=== PATIENT | male | born 1955 | race African-American/Black ===

== ENCOUNTER 2021-05-12 08:10 | Emergency (ER) | payer MEDICARE, MEDICAID ==
[~2021-05-12] VITALS: Ht 193 cm; Wt 68.0 kg
[~2021-05-12 08:10] MED LIST: AMLO10TA80 MT; SULF1TAB48 MT
[2021-05-12] MEDS ORDERED: AMOX1TAB16 MT (10:47)
[2021-05-12] MEDS ORDERED: IBUP-2029 MT (11:04)
[2021-05-12 11:17] VITALS: BP 158/78
== END 2021-05-12 11:31 | disposition home or self-care (01) ==
LOC: ER 08:10
DX: L02.214 Cutaneous abscess of groin (principal); I10 Essential (primary) hypertension
CPT/HCPCS: 99281

== ENCOUNTER 2022-02-25 12:49 | Inpatient (IN) | payer MEDICARE, MEDICAID ==
[~2022-02-25] VITALS: Ht 182.9 cm; Wt 64.9 kg
[~2022-02-25 12:49] MED LIST changes: +AMOX1TAB16 MT; +IBUP-2029 MT
[2022-02-25] MEDS ORDERED: ONDANSETRON HCL 4MG/2ML INJ IV STA (16:53)
[2022-02-25] MEDS ORDERED: MORPHINE SULFATE 4 MG/ML CPJ (NOT FOR IM USE) IV STA (16:53)
[2022-02-25] MEDS ORDERED: SODIUM CHLORIDE 0.9% 1,000 ML IV ONE (17:00)
[2022-02-25 18:11] LABS: BASOPHILS % 0.4 % (0.0-2.0); EOSINOPHILS % 1.8 % (0.0-5.0); HEMATOCRIT. 31.5 % (42.0-52.0); HEMOGLOBIN. 10.5 g/dL (14.0-18.0); LYMPHOCYTES % 26.4 % (20.0-50.0); MEAN CORPUSCULAR HEMOGLOBIN 28.7 pg (28.0-32.0); MEAN CORPUSCULAR VOLUME 86.5 fL (80.0-94.0); MEAN PLATELET VOLUME 8.1 fl (7.4-10.4); MONOCYTES % 9.7 % (2.0-8.0); NEUTROPHILS % 61.7 % (40.0-76.0); PLATELET 172 x1000/uL (130-400); RED BLOOD CELL COUNT 3.64 mill/uL (4.7-6.1); RED CELL DISTRIBUTION WIDTH 14.2 % (11.6-14.6)
[2022-02-25 18:20] LABS: PROTHROMBIN TIME 10.9 sec (9.6-11.0)
[2022-02-25 18:28] LABS: CHLORIDE 106 mEq/L (98-107)
[2022-02-25 18:31] LABS: CLARITY URINE CLEAR (CLEAR); COLOR URINE YELLOW (YELLOW); KETONES URINE NEGATIVE (NEGATIVE); LEUKOCYTE ESTERASE URINE 2+ (NEGATIVE); NITRITE URINE NEGATIVE (NEGATIVE); OCCULT BLOOD URINE TRACE (NEGATIVE); PROTEIN URINE NEGATIVE (NEGATIVE); UROBILINOGEN URINE 0.2 E.U./dL (0.2-1.0)
[2022-02-25] MEDS ORDERED: HYDRALAZINE 20MG/ML VIAL IV ONE (19:15)
[2022-02-26] MEDS ORDERED: DOXA4TAB3 MT (09:12)
[2022-02-26] MEDS ORDERED: SULF-13 MT (09:12)
[2022-02-26] MEDS ORDERED: POTA-205 MT (09:12)
[2022-02-26] MEDS ORDERED: AMLO5TAB88 MT (09:12)
[2022-02-26] MEDS ORDERED: ATEN-42 MT (09:12)
[2022-02-26] MEDS ORDERED: LEUP22.52 IM (09:12)
[2022-02-26] MEDS: ATENOLOL 25MG TABLET PO SCH ×2 (09:43→21:11)
[2022-02-26] MEDS: AMLODIPINE 5MG TABLET PO SCH (09:43)
[2022-02-26 12:00] VITALS: BP 167/90
[2022-02-26] MEDS: HYDRALAZINE 20MG/ML VIAL IV PRN (13:29)
[2022-02-26] MEDS ORDERED: MORPHINE SULFATE 2 MG/ML CPJ (NOT FOR IM USE) IV PRN (14:00)
[2022-02-26] MEDS ORDERED: ZOLPIDEM TARTRATE 5MG TABLET PO PRN (14:00)
[2022-02-26] MEDS ORDERED: DOCUSATE SODIUM 100MG CAPSULE PO PRN (14:00)
[2022-02-26] MEDS ORDERED: ONDANSETRON HCL 4MG/2ML INJ IV PRN (14:00)
[2022-02-26] MEDS ORDERED: ACETAMINOPHEN 325MG TABLET PO PRN ×2 (14:00)
[2022-02-26] MEDS ORDERED: MAGNESIUM/ALUMINUM HYDROXIDE/SIMETHICONE 30ML UDC PO PRN (14:00)
[2022-02-26] MEDS ORDERED: CLONIDINE 0.1MG TABLET PO PRN (14:00)
[2022-02-26] MEDS ORDERED: NALOXONE HCL 0.4MG/ML VIAL IV PRN (14:15)
[2022-02-26] MEDS: DEXT 5%/0.45% NACL 1000ML 1,000 ML IV SCH (15:47)
[2022-02-26 15:58] VITALS: BP 188/88
[2022-02-26 16:00] VITALS: BP 175/96
[2022-02-26 20:00] VITALS: BP 165/92
[2022-02-26] MEDS ORDERED: DOXAZOSIN MESYLATE 4MG TABLET PO SCH (21:00)
[2022-02-27] VITALS (7 sets, daily range): BP systolic 127–170; BP diastolic 70–96
[2022-02-27] MEDS: DEXT 5%/0.45% NACL 1000ML 1,000 ML IV SCH ×2 (00:23→09:40)
[2022-02-27] MEDS: ATENOLOL 25MG TABLET PO SCH (09:04)
[2022-02-27] MEDS: AMLODIPINE 5MG TABLET PO SCH (09:04)
[2022-02-27] MEDS: HYDRALAZINE 20MG/ML VIAL IV PRN (18:26)
== END 2022-02-27 21:00 | disposition home or self-care (01) | DRG 394 ==
LOC: ER 12:49 → EDBEDREQDT 02-26 03:56 → EDBEDREQ 02-26 03:56 → EDBEDREQTM 02-26 03:56 → MICUSO 02-26 04:10 → 7WST 02-26 07:35
PROVIDERS: ADMIT Internal Medicine; ATTEND Internal Medicine
DX: K40.90 Unilateral inguinal hernia, without obstruction or gangrene, not specified as recurrent (principal); F84.0 Autistic disorder; N39.0 Urinary tract infection, site not specified; I10 Essential (primary) hypertension; I16.0 Hypertensive urgency; K56.41 Fecal impaction; Z82.49 Family history of ischemic heart disease and other diseases of the circulatory system; N40.0 Benign prostatic hyperplasia without lower urinary tract symptoms; N28.1 Cyst of kidney, acquired
CPT/HCPCS: 36415; 74176; 80053; 81003; 85025; 99285; J0360; J2270; J2405; J7030

== ENCOUNTER 2024-12-07 15:49 | Inpatient (IN) | payer MEDICARE, MEDICAID ==
[~2024-12-07] VITALS: Ht 185.4 cm; Wt 67.3 kg
[~2024-12-07 15:49] MED LIST changes: +AMLO5TAB88 MT; +ATEN-42 MT; +DOXA4TAB3 MT; +LEUP22.52 IM; +POTA-205 MT; +SULF-13 MT
[2024-12-07] MEDS: SODIUM CHLORIDE 0.9% (SEPSIS BOLUS) IV ONE (16:47)
[2024-12-07 16:50] LABS: HEMATOCRIT. 31.9 % (42.0-52.0); MEAN CORPUSCULAR HEMOGLOBIN 29.8 pg (28.0-32.0); MEAN CORPUSCULAR HGB CONC 34.5 g/dL (31.0-37.0); MEAN CORPUSCULAR VOLUME 86.2 fL (80.0-94.0); MEAN PLATELET VOLUME 8.3 fl (7.4-10.4); PLATELET 133 x1000/uL (130-400); RED CELL DISTRIBUTION WIDTH 14.3 % (11.6-14.6); WHITE BLOOD COUNT 4.6 x1000/uL (4.5-11.0)
[2024-12-07 16:53] LABS: DIFFERENTIAL COMMENT 1
[2024-12-07 16:54] LABS: CHLORIDE 100 mEq/L (98-107); POTASSIUM 3.4 mEq/L (3.5-5.1); SODIUM 138 mEq/L (136-145)
[2024-12-07 16:55] LABS: CARBON DIOXIDE 29 mEq/L (21-32)
[2024-12-07 16:56] LABS: CALCIUM 9.8 mg/dL (8.7-10.4)
[2024-12-07 17:00] LABS: GLUCOSE 110 mg/dL (70-105)
[2024-12-07 17:01] LABS: UREA NITROGEN BLOOD 18 mg/dL (9-23)
[2024-12-07 17:02] LABS: ALANINE AMINOTRANSFERASE < 7 IU/L (10-49); ALBUMIN 3.7 g/dL (3.2-4.8); ASPARTATE AMINOTRANSFERASE 16 IU/L (<34)
[2024-12-07 17:03] LABS: BILIRUBIN DIRECT 0.3 mg/dL (<=3.0); BILIRUBIN TOTAL 1.1 mg/dL (0.1-1.0)
[2024-12-07] MEDS: ONDANSETRON HCL 4MG/2ML INJ IV STA (17:07)
[2024-12-07] MEDS: MORPHINE SULFATE 4 MG/ML INJ (FOR IV/IM USE) IV STA (17:08)
[2024-12-07 17:13] LABS: PROTHROMBIN TIME 10.6 sec (9.6-11.0)
[2024-12-07 17:16] LABS: LACTIC ACID 3.4 mmol/L (0.4-2.0); TROPONIN I HIGH SENSITIVITY 132 ng/L (3.0-53)
[2024-12-07 19:39] LABS: PLATELET ESTIMATE NORMAL
[2024-12-07] MEDS: CEFTRIAXONE 2GM/50ML 50 ML IV ONE (19:44)
[2024-12-07 21:25] VITALS: BP 92/66; PULSE 90; RESP 20; TEMP 37.3; O2SAT 97
[2024-12-07 22:21] VITALS: BP 92/66; PULSE 90; RESP 20; TEMP 37.3
[2024-12-07] MEDS ORDERED: MORPHINE SULFATE 2 MG/ML INJ (NOT FOR IM USE) IV PRN (23:00)
[2024-12-07] MEDS ORDERED: ACETAMINOPHEN 325MG TABLET PO PRN ×2 (23:00)
[2024-12-07] MEDS ORDERED: ONDANSETRON HCL 4MG/2ML INJ IV PRN (23:00)
[2024-12-07] MEDS ORDERED: NALOXONE HCL 0.4MG/ML VIAL IV PRN (23:30)
[2024-12-07] MEDS ORDERED: MECL-299 MT (23:52)
[2024-12-07] MEDS ORDERED: PANT40TA51 MT (23:52)
[2024-12-07] MEDS ORDERED: DOCU250C14 MT (23:52)
[2024-12-07] MEDS ORDERED: LOSA1TAB37 MT (23:52)
[2024-12-08] VITALS: BP 98/59; PULSE 79; RESP 13; TEMP 36.6; O2SAT 99
[2024-12-08] MEDS: BISACODYL 10MG SUPP PR NR (00:26)
[2024-12-08] MEDS: ENOXAPARIN 40MG/0.4ML SYR SUBCUT SCH (00:27)
[2024-12-08] MEDS: SODIUM CHL 0.9% + KCL 20MEQ/L 1,000 ML IV SCH (00:27)
[2024-12-08 02:48] LABS: CLARITY URINE CLEAR (CLEAR); COLOR URINE YELLOW (YELLOW); GLUCOSE URINE NEGATIVE (NEGATIVE); KETONES URINE NEGATIVE (NEGATIVE); LEUKOCYTE ESTERASE URINE 2+ (NEGATIVE); NITRITE URINE POSITIVE (NEGATIVE); OCCULT BLOOD URINE 2+ (NEGATIVE); PH URINE 8.5 (4.5-8.0); PROTEIN URINE TRACE (NEGATIVE); SPECIFIC GRAVITY URINE 1.047 (1.005-1.030); UROBILINOGEN URINE 0.2 E.U./dL (0.2-1.0)
[2024-12-08 04:39] VITALS: BP 92/52; PULSE 64; RESP 14; TEMP 36.4; O2SAT 100
[2024-12-08 05:01] LABS: SQUAMOUS EPITHELIAL CELL URINE FEW /lpf (RARE/1+)
[2024-12-08 05:02] LABS: BACTERIA URINE NONE SEEN
[2024-12-08] MEDS: LACTULOSE 20G/30ML UDC PO SCH (06:11)
[2024-12-08 08:00] VITALS: BP 102/65; PULSE 65; RESP 16; TEMP 36.6; O2SAT 100
[2024-12-08] MEDS: DOCUSATE SODIUM 250MG CAPSULE PO SCH (08:19)
[2024-12-08] MEDS: PANTOPRAZOLE SODIUM 40 MG/VIAL IV SCH (08:19)
[2024-12-08] MEDS: AMLODIPINE 5MG TABLET PO SCH (08:20)
[2024-12-08 12:00] VITALS: BP 109/66; PULSE 66; RESP 15; TEMP 36.7; O2SAT 99
[2024-12-08 16:00] VITALS: BP 129/75; PULSE 80; RESP 20; TEMP 36.7; O2SAT 95
[2024-12-08] MEDS: DOXAZOSIN MESYLATE 4MG TABLET PO SCH (20:30)
[2024-12-08] MEDS: CEFTRIAXONE 1GM/50ML 50 ML IV SCH (20:32)
[2024-12-09] VITALS: BP 128/74; PULSE 80; RESP 18; TEMP 36.7; O2SAT 96
[2024-12-09 04:00] VITALS: BP 128/65; PULSE 74; RESP 19; TEMP 36.9
[2024-12-09 08:00] VITALS: BP 152/91; PULSE 72; RESP 13; TEMP 37; O2SAT 100
[2024-12-09 12:00] VITALS: BP 170/82; PULSE 73; RESP 13; TEMP 36.2; O2SAT 100
[2024-12-09] MEDS: HYDRALAZINE 20MG/ML VIAL IV PRN (12:45)
[2024-12-09 16:52] VITALS: BP 161/80; PULSE 77; TEMP 98.4; O2SAT 98
[2024-12-10] MEDS ORDERED: FAMOTIDINE 20MG/2ML VIAL IV SCH (09:00)
== END 2024-12-09 17:30 | disposition home or self-care (01) | DRG 872 ==
LOC: ER 15:49 → EDBEDREQ 16:30 → EDBEDREQTM 19:23 → EDBEDREQ 19:23 → 3WST 21:16
PROVIDERS: ADMIT Internal Medicine; ATTEND Internal Medicine
DX: A41.9 Sepsis, unspecified organism (principal); K56.600 Partial intestinal obstruction, unspecified as to cause; F84.0 Autistic disorder; K56.41 Fecal impaction; I10 Essential (primary) hypertension; Z85.46 Personal history of malignant neoplasm of prostate; Z86.73 Personal history of transient ischemic attack (TIA), and cerebral infarction without residual deficits; Z82.49 Family history of ischemic heart disease and other diseases of the circulatory system
CPT/HCPCS: 36415; 71045; 74177; 80048; 80076; 81003; 83605; 83735; 84145; 84484; 85025; 93005; 99285; A4606; J0360; J0696; J1650; J2270; J2405; J2470; J3480; J7030